=== PATIENT | female | born 1970 | race Caucasian/White ===

== ENCOUNTER → 2021-12-06 | Outpatient (CLI) | payer OTHER ==
[2021-12-06 10:23] LABS: CALCIUM 9.8 mg/dL (8.3-10.5)
[2021-12-06 10:27] LABS: TOTAL BILIRUBIN 0.4 mg/dL (0.2-1.2)
[2021-12-06 10:28] LABS: BASO # 0.02 K/mm3 (0.02-0.10); EOS # 0.13 K/mm3 (0.04-0.40); EOS % 2.9 % (1.0-5.0); HEMOGLOBIN 12.8 g/dL (12.5-16.0); LYMPH# 1.23 K/mm3 (1.50-4.00); MEAN CELL VOLUME 89 fl (78-100); MEAN CORPUSCULAR HEMOGLOBIN 29 pg (27-31); MEAN CORPUSCULAR HGB CONC 33 g/dL (33-37); MEAN PLATELET VOLUME 10.3 fl (7.4-10.4); MONO # 0.46 K/mm3 (0.20-0.80); NEU # 2.67 K/mm3 (1.40-6.50); PLATELET COUNT 238 K/mm3 (130-400); RED CELL DISTRIBUTION WIDTH 12.6 % (11.5-14.5); WHITE BLOOD COUNT 4.5 K/mm3 (4.8-10.8)
[2021-12-06 11:47] LABS: ALBUMIN 4.4 g/dL (3.5-5.0)
== END ==
LOC: LAB 09:15
PROVIDERS: Internal Medicine
DX: Z00.00 Encounter for general adult medical examination without abnormal findings (principal); Z20.822 Contact with and (suspected) exposure to COVID-19

== ENCOUNTER → 2022-10-14 | Outpatient (CLI) | payer OTHER | LOC: RAD 10:10 | DX: M19.011 Primary osteoarthritis, right shoulder (principal); M85.852 Other specified disorders of bone density and structure, left thigh; M85.851 Other specified disorders of bone density and structure, right thigh; M75.31 Calcific tendinitis of right shoulder ==